=== PATIENT | male | born 1995 | race Caucasian/White ===

== ENCOUNTER 2018-03-12 20:43 | Emergency (ER) | payer OTHER ==
[2018-03-12] MEDS ORDERED: NS 0.9% 1000 ML* 1,000 ML IV ONE (21:16)
[2018-03-12 22:03] LABS: ABS Basophils 0 10^3/ul (0-0.2); ABS Eosinophils 0 10^3/ul (0-0.6); ABS Monocytes 0.8 10^3/ul (0-0.8); ABS Neutrophils 12.7 10^3/ul (1.5-7.7); ABS Nucleated RBC 0 10^3/ul; Eosinophil % 0.1 % (0-6); Hematocrit 43 % (42-52); Hemoglobin 14.5 g/dl (14.0-18.0); Mean Corpuscular HGB Conc 34 g/dl (31-36); Mean Corpuscular Hemoglobin 32 pg (27-31); Mean Corpuscular Volume 95 fL (80-94); Mean Platelet Volume 8.4 um3 (7.4-10.4); Nucleated Red Blood Cells % 0; Platelet Count 156 10^3/ul (150-450); Red Blood Count 4.48 10^6/ul (4.0-5.4); Red Cell Distribution Width 13 % (10.5-15); White Blood Count 14.6 10^3/ul (3.5-10.8)
[2018-03-12 22:19] LABS: EGFR Non-African American 62.3 (>60)
[2018-03-12 23:56] VITALS: BP 120/64
--- NOTE | 2018-03-13 02:03 | ED ---
Jayne Lee Rebecca, scribed for Bg Mortensen MD on 03/12/18 at 2117 . Neurological HPI - HPI Summary HPI Summary: Pt is a 22 y/o M BIBA who presents to ED s/p LOC with suspected seizure. At approximately 1945, while playing basketball, the pt felt hot and diaphoretic when he suddenly "blacked out." When he came to, he remembers waking up and being immediately aware of who he is, where he was, and who was around him though he was "out of it." States that witnesses explained he had seizure-like activity. Reports he may be dehydrated. Additionally notes N/V x1 en route which has resolved. Denies CP, palpitations, BURRELL. PMHx 1 seizure every year for the past 3 years. Reports prior episodes were under similar circumstances - the day of exercising when he suspects dehydration. Last episode about 1 year ago. - History of Current Complaint Chief Complaint: EDSeizure Stated Complaint: SEIZURE Time Seen by Provider: 03/12/18 21:08 Hx Obtained From: Patient Onset/Duration: Sudden Onset, Resolved Current Severity: None Number of Seizures: 1 - suspected Pain Intensity: 0 Pain Scale Used: 0-10 Numeric Character: Other: - LOC Number of Episodes: 1 Syncope Context: Witnessed, Loss of Consciousness: Yes Frequency: Episodes x___ - 1 Alleviating: Spontanious Resolution Associated Signs and Symptoms: Positive: Nausea/Vomiting - 1x - Additional Pertinent History Primary Care Physician: [id number] - Allergy/Home Medications Allergies/Adverse Reactions: Allergies Allergy/AdvReac Type Severity Reaction Status Date / Time morphine Allergy Unknown Verified 03/12/18 22:09 Reaction Details Home Medications: Home Medications Amphetamine MIXED SALT TAB* [Adderall TAB*] 20 mg PO DAILY 03/12/18 [History Confirmed 03/12/18] PMH/Surg Hx/FS Hx/Imm Hx Endocrine/Hematology History: Denies: Hx Diabetes Neurological History: Reports: Other Neuro Impairments/Disorders - Suspected seizures - 1 every year for the past 3 years Infectious Disease History: No Infectious Disease History: Denies: Traveled Outside the [place] in Last 30 Days - Family History Known Family History: Negative: Cardiac Disease, Diabetes - Social History Alcohol Use: Weekly Substance Use Type: Reports: Marijuana Substance Use Comment - Amount & Last Used: daily Hx Tobacco Use: No Smoking Status (MU): Never Smoked Tobacco Review of Systems Positive: Skin Diaphoresis - resolved, Other - Hot - resolved Negative: Palpitations, Chest Pain Positive: Vomiting - 1x, Nausea - resolved Positive: Syncope - LOC with suspected seizure. Negative: Headache All Other Systems Reviewed And Are Negative: Yes Physical Exam - Summary Physical Exam Summary: Appearance: Well appearing, no pain distress Skin: warm, diaphoretic, reflects adequate perfusion Head/face: contusion on his right lateral orbit Eyes: EOMI, PERRL ENT: contusion to the R side of the tongue Neck: supple, non-tender Respiratory: CTA, breath sounds present Cardiovascular: Slightly tachcyardic, pulses symmetrical Abdomen: non-tender, soft Bowel Sounds: present Musculoskeletal: normal, strength/ROM intact Neuro: normal, sensory motor intact, A&Ox3 Triage Information Reviewed: Yes Vital Signs On Initial Exam: Initial Vitals Pulse Pulse Ox 94 95 03/12/18 20:46 03/12/18 20:46 Vital Signs Reviewed: Yes Procedures - Procedure Summary Procedure Summary: Bedside echocardiogram: Showed good wall motion, no hypertrophy of the left ventricle and normal septum. This is a limited study performed by the ER physician and we will obtain an outpatient echo. Diagnostics - Vital Signs Vital Signs Temp Pulse Resp BP Pulse Ox 03/12/18 20:50 97.8 F 94 31 145/81 95 03/12/18 20:46 94 95 - Laboratory Lab Results: Lab Results 03/12/18 03/12/18 Range/Units 21:54 21:54 WBC 14.6 H (3.5-10.8) 10^3/ul RBC 4.48 (4.0-5.4) 10^6/ul Hgb 14.5 (14.0-18.0) g/dl Hct 43 (42-52) % MCV 95 H (80-94) fL MCH 32 H (27-31) pg MCHC 34 (31-36) g/dl RDW 13 (10.5-15) % Plt Count 156 (150-450) 10^3/ul MPV 8.4 (7.4-10.4) um3 Neut % (Auto) 87.1 H (38-83) % Lymph % (Auto) 7.0 L (25-47) % [place] % (Auto) 5.5 (0-7) % Eos % (Auto) 0.1 (0-6) % Baso % (Auto) 0.3 (0-2) % Absolute Neuts (auto) 12.7 H (1.5-7.7) 10^3/ul Absolute Lymphs (auto) 1.0 (1.0-4.8) 10^3/ul Absolute Monos (auto) 0.8 (0-0.8) 10^3/ul Absolute Eos (auto) 0 (0-0.6) 10^3/ul Absolute Basos (auto) 0 (0-0.2) 10^3/ul Absolute Nucleated RBC 0 10^3/ul Nucleated RBC % 0 Sodium 139 (139-145) mmol/L Potassium 3.9 (3.5-5.0) mmol/L Chloride 106 (101-111) mmol/L Carbon Dioxide 21 L (22-32) mmol/L Anion Gap 12 H (2-11) mmol/L BUN 15 (6-24) mg/dL Creatinine 1.41 H (0.67-1.17) mg/dL Est GFR ( Amer) 80.1 (>60) Est GFR (Non-Af Amer) 62.3 (>60) BUN/Creatinine Ratio 10.6 (8-20) Glucose 71 (70-100) mg/dL Calcium 9.6 (8.6-10.3) mg/dL Total Creatine Kinase 172 (10-223) U/L Result Diagrams: 03/12/18 21:54 03/12/18 21:54 Lab Statement: Any lab studies that have been ordered have been reviewed, and results considered in the medical decision making process. - EKG 9 Cardiac Rate: NL - 83 bpm EKG Rhythm: Sinus Rhythm ST Segment: Normal EKG Interpretation: LVH voltage criteria, poor R wave progression Re-Evaluation - Re-Evaluation First Eval Re-Evaluation Time: 22:06 Change: Improved Comment: Bedside echo was done. Second Eval Re-Evaluation Time: 23:57 Change: Improved Comment: Discussing results and discharge plan with the pt. Course/Dx - Course Assessment/Plan: Pt is a 22 y/o M BIBA who presents to ED s/p LOC with suspected seizure at approximately 1945. While playing basketball, the pt felt hot and diaphoretic when he suddenly "blacked out." When he came to, he remembers waking up and being immediately aware of who he is, where he was, and who was around him though he was "out of it." States that witnesses explained he had seizure-like activity. Reports he may be dehydrated. Additionally notes N /V x1 en route which has resolved. Denies CP, palpitations, BURRELL. PMHx 1 seizure every year for the past 3 years. Reports prior episodes were under similar circumstances. Last episode about 1 year ago. Blood work was done. Creatinine of 1.41, CK of 172. EKG is sinus rhythm with LVH criteria. A bedside echo was done which showed good wall motion, no hypertrophy of the left ventricle and normal septum. This is a limited study performed by the ER physician and we will obtain an outpatient echo. In the ED course pt received fluids. Pt will be D/C to home with Dx of syncope and acute renal failure. He understands and agrees. Allergy noted. Pt likely with exertional syncope rather than sz. LVH voltage criteria may be due to habitus age, but given his hx of similar will need outpt FORMAL echo. Dry, with elev Cr. Hydrated 2L IVF here. No rhabdo. F/U in am with his clinic for echo. - Differential Dx Differential Diagnoses Neuro: Positive: Hypovolemia, Metabolic Abnormality, Seizure Disorder, Other - syncope - Diagnoses Provider Diagnoses: Syncope, Acute renal failure Discharge - Sign-Out/Discharge Documenting (check all that apply): Discharge/Admit/Transfer - Discharge - Discharge Plan Condition: Improved Disposition: HOME Patient Education Materials: Syncope (ED) Referrals: [facility] [Primary Care Provider] - Additional Instructions: Go in to Health Center in the morning -- you will need them to give you a prescription for an ECHOCARDIOGRAM of the heart. Strictly AVOID any physical activity or activity that gets your heart rate up prior to having this test. Ice sore area near eye. Return with repeat passing out, seizure, new symptoms or other concerns. Do not drive until you have had the test and reevaluation by Health [facility]. - Billing Disposition and Condition Condition: IMPROVED Disposition: HOME The documentation as recorded by the Jayne lauren Rebecca accurately reflects the service I personally performed and the decisions made by me, Bg Mortensen MD.
== END 2018-03-13 00:07 | disposition home or self-care (01) ==
LOC: ED 20:43
DX: R55 Syncope and collapse (principal); N17.9 Acute kidney failure, unspecified; R11.2 Nausea with vomiting, unspecified; Z88.5 Allergy status to narcotic agent
CPT/HCPCS: 36415; 80048; 82550; 85025; 93005; 96360; 96361; 99283

== ENCOUNTER 2018-04-09 22:05 | Emergency (ER) | payer OTHER ==
[2018-04-09] MEDS ORDERED: Ondansetron ODT TAB* 4 MG PO ONE (22:49)
[2018-04-10 00:39] LABS: ABS Basophils 0 10^3/ul (0-0.2); ABS Eosinophils 0 10^3/ul (0-0.6); ABS Lymphocytes 1.3 10^3/ul (1.0-4.8); ABS Monocytes 0.6 10^3/ul (0-0.8); ABS Nucleated RBC 0 10^3/ul; Eosinophil % 0.1 % (0-6); Hematocrit 42 % (42-52); Hemoglobin 14.7 g/dl (14.0-18.0); Lymphocyte % 11.5 % (25-47); Mean Corpuscular HGB Conc 35 g/dl (31-36); Mean Corpuscular Hemoglobin 33 pg (27-31); Mean Corpuscular Volume 93 fL (80-94); Mean Platelet Volume 8.2 um3 (7.4-10.4); Nucleated Red Blood Cells % 0.1; Platelet Count 170 10^3/ul (150-450); Red Blood Count 4.51 10^6/ul (4.0-5.4); Red Cell Distribution Width 14 % (10.5-15)
[2018-04-10] MEDS ORDERED: clonazePAM TAB(*) 1 MG PO ONE (00:56)
[2018-04-10] MEDS ORDERED: NS 0.9% 500 ML* 500 ML IV ONE (00:56)
[2018-04-10 00:58] LABS: EGFR Non-African American 93.7 (>60)
[2018-04-10 01:52] VITALS: BP 118/69
--- NOTE | 2018-04-10 03:46 | ED ---
Sean Lee Jennifer, scribed for Bg Mortensen MD on 04/10/18 at 0043 . Substance Abuse/Use - HPI Summary HPI Summary: The patient is a 22 year old male brought in by EMS for withdrawals from Xanax for the past two weeks. The patient reports hes been trying to wean himself off Xanax for the past two weeks, but he drank alcohol today causing him to have a panic attack. He additionally took 0.5 mg klonopin at 1200 today and another 0.5mg at 1930. He states him symptoms consist of feeling extremely anxious, nausea, and having everything in his body cramp up. Patient reports that when he was addicted to Xanax, he was taking about 1mg each day. He last took Xanax yesterday. Patient states he was in the ED two weeks ago for seizure after he tried to quit Xanax cold . - History Of Current Complaint Chief Complaint: EDSubstanceAbuse Stated Complaint: WITHDRAWL Time Seen by Provider: 04/10/18 00:24 Hx Obtained From: Patient Onset/Duration of Drug/ETOH Abuse: Weeks - over two weeks Ingestion History: Type/Name Of Drug - Xanax, EtOH, Amount Ingested - Xanax - about 1 mg per day Overdose Characteristics: Oral Timing Of Abuse: Daily - Daily use of xanax, Binge Use - EtOH Severity Initially: Mild Severity Currently: Mild Character: Anxious Aggravating Factor(s): Other - Trying to wean himself off xanax Alleviating Factor(s): Nothing Associated Signs And Symptoms: Other: - anxious, nausea, everything in body "cramps up" - Allergies/Home Medications Allergies/Adverse Reactions: Allergies Allergy/AdvReac Type Severity Reaction Status Date / Time morphine Allergy Unknown Verified 04/09/18 22:14 Reaction Details PMH/Surg Hx/FS Hx/Imm Hx Endocrine/Hematology History: Denies: Hx Diabetes Neurological History: Reports: Hx Seizures, Other Neuro Impairments/Disorders - Suspected seizures - 1 every year for the past 3 years Psychiatric History: Reports: Hx Anxiety Infectious Disease History: No Infectious Disease History: Denies: Traveled Outside the [place] in Last 30 Days - Family History Known Family History: Negative: Cardiac Disease, Diabetes - Social History Occupation: Student Alcohol Use: Weekly Substance Use Type: Reports: Marijuana, Other - Xanax Substance Use Comment - Amount & Last Used: daily Hx Tobacco Use: No Smoking Status (MU): Never Smoked Tobacco Review of Systems Positive: Nausea Positive: Other - "Everything in my body cramps up" Positive: Anxious, Other - Panic attack All Other Systems Reviewed And Are Negative: Yes Physical Exam - Summary Physical Exam Summary: Appearance: Well appearing, no pain distress Skin: warm, dry, reflects adequate perfusion Head/face: normal Eyes: EOMI, DEMETRI ENT: normal Neck: supple, non-tender Respiratory: CTA, breath sounds present Cardiovascular: RRR, pulses symmetrical Abdomen: non-tender, soft Bowel Sounds: present Musculoskeletal: normal, strength/ROM intact Neuro: Resting tremor, normal, sensory motor intact, A&Ox3 Triage Information Reviewed: Yes Vital Signs On Initial Exam: Initial Vitals Temp Pulse Resp BP Pulse Ox 98 F 96 18 144/89 99 04/09/18 22:10 04/09/18 22:10 04/09/18 22:10 04/09/18 22:10 04/09/18 22:10 Vital Signs Reviewed: Yes Diagnostics - Vital Signs Vital Signs Temp Pulse Resp BP Pulse Ox 04/10/18 00:09 98.6 F 72 22 123/82 100 04/09/18 22:10 98 F 96 18 144/89 99 - Laboratory Lab Results: Lab Results 04/10/18 04/10/18 Range/Units 00:26 00:26 WBC 11.0 H (3.5-10.8) 10^3/ul RBC 4.51 (4.0-5.4) 10^6/ul Hgb 14.7 (14.0-18.0) g/dl Hct 42 (42-52) % MCV 93 (80-94) fL MCH 33 H (27-31) pg MCHC 35 (31-36) g/dl RDW 14 (10.5-15) % Plt Count 170 (150-450) 10^3/ul MPV 8.2 (7.4-10.4) um3 Neut % (Auto) 82.5 (38-83) % Lymph % (Auto) 11.5 L (25-47) % [place] % (Auto) 5.6 (0-7) % Eos % (Auto) 0.1 (0-6) % Baso % (Auto) 0.3 (0-2) % Absolute Neuts (auto) 9.0 H (1.5-7.7) 10^3/ul Absolute Lymphs (auto) 1.3 (1.0-4.8) 10^3/ul Absolute Monos (auto) 0.6 (0-0.8) 10^3/ul Absolute Eos (auto) 0 (0-0.6) 10^3/ul Absolute Basos (auto) 0 (0-0.2) 10^3/ul Absolute Nucleated RBC 0 10^3/ul Nucleated RBC % 0.1 Sodium 135 L (139-145) mmol/L Potassium 3.4 L (3.5-5.0) mmol/L Chloride 99 L (101-111) mmol/L Carbon Dioxide 22 (22-32) mmol/L Anion Gap 14 H (2-11) mmol/L BUN 9 (6-24) mg/dL Creatinine 0.99 (0.67-1.17) mg/dL Est GFR ( Amer) 120.5 (>60) Est GFR (Non-Af Amer) 93.7 (>60) BUN/Creatinine Ratio 9.1 (8-20) Glucose 106 H (70-100) mg/dL Calcium 10.0 (8.6-10.3) mg/dL Total Bilirubin 1.80 H (0.2-1.0) mg/dL AST 39 (13-39) U/L ALT 26 (7-52) U/L Alkaline Phosphatase 55 (34-104) U/L Total Protein 6.7 (6.4-8.9) g/dL Albumin 4.5 (3.2-5.2) g/dL Globulin 2.2 (2-4) g/dL Albumin/Globulin Ratio 2.0 (1-3) Lipase 10 L (11.0-82.0) U/L Result Diagrams: 04/10/18 00:26 04/10/18 00:26 Lab Statement: Any lab studies that have been ordered have been reviewed, and results considered in the medical decision making process. Course/Dx - Course Course Of Treatment: Recent college graduate who has been self tapering himself off of recreationally abused Xanax. He's been having worsening anxiety and persistent tremor. I explained the nuances of benzodiazepine abuse and withdrawal with him. He is suggested to follow up closely with his primary care physician to assist with taper. Klonopin given here for longer half-life. Ativan will be used outpatient with 0.5 mg tablets used to taper. He is leaving for home shortly or local referral would be given. - Diagnoses Provider Diagnoses: Panic attack, Benzodiazepine withdrawal Discharge - Sign-Out/Discharge Documenting (check all that apply): Discharge/Admit/Transfer - Discharge Plan Condition: Good Disposition: HOME Prescriptions: LORazepam [Ativan] 0.5 mg PO BID PRN #15 tablet MDD 3 PRN Reason: anxiety/withdrawl symptoms Patient Education Materials: Benzodiazepine Abuse (ED), Alcohol Withdrawal (ED) Referrals: [facility] [Primary Care Provider] - Additional Instructions: See your doctor on arrival home in [facility]. Cut back on alcohol. Seek help for addiction on arrival home. Taper medication over approximately 2 weeks. Your doctor can help you with this. Instructions above far for alcohol withdrawal. I understand he did not have this but benzodiazepine withdrawal can be very similar. - Billing Disposition and Condition Condition: STABLE Disposition: HOME The documentation as recorded by the Sean lauren Jennifer accurately reflects the service I personally performed and the decisions made by me, Bg Mortensen MD.
== END 2018-04-10 02:05 | disposition home or self-care (01) ==
LOC: ED 22:05
DX: F41.0 Panic disorder [episodic paroxysmal anxiety] (principal); F19.939 Other psychoactive substance use, unspecified with withdrawal, unspecified; R11.0 Nausea; F41.9 Anxiety disorder, unspecified
CPT/HCPCS: 36415; 80053; 83690; 85025; 99283; A9270-GY